=== PATIENT | female | born 1985 | race Caucasian/White ===

== ENCOUNTER 2019-01-19 10:21 | Outpatient (REF) | payer OTHER, SELFPAY ==
[2019-01-19 22:26] LABS: Anion Gap 6.5 mmol/L (3-11); BUN 12 mg/dL (7-18); CO2 30.5 mmol/L (21.0-32.0); CREATININE 0.83 mg/dL (0.55-1.02); Calcium 9.2 mg/dL (8.5-10.1); Chloride 102 mmol/L (98-107); Cholesterol 182 mg/dL (50-200); Glucose 84 mg/dL (70-100); HDL Cholesterol 71 mg/dL (40-60); LDL CHOLESTEROL 98 mg/dL (<100); Potassium 4.1 mmol/L (3.5-5.1); Sodium 139 mmol/L (136-145); Triglyceride 51 mg/dL (30-150)
== END 2019-01-19 10:41 ==
LOC: NCHCN 10:21
PROVIDERS: PCP Family Medicine; Visit Provider Family Medicine
DX: Z00.00 Encounter for general adult medical examination without abnormal findings (principal); Z13.220 Encounter for screening for lipoid disorders; Z13.228 Encounter for screening for other metabolic disorders
CPT/HCPCS: 80048; 80061; 83721

== ENCOUNTER 2019-03-17 15:03 | Outpatient (REF) | payer OTHER, SELFPAY ==
--- NOTE | 2019-03-17 14:30 | PAPFT_PTH ---
PATIENT: Maren Saucedo LOC: NCN #:[id number] AGE/SX: 33/F ROOM: RE03/17/[address]: Hiram Gasca : 1985 BED: DIS: 03/17/2019 SPEC #: [id number] RECD: 03/21/19 13:06 STATUS: AIMEE REElly #: [id number] HUGO: 03/17/19 14:[address]: Hiram Gasca DEPT: [facility] Cytology RECD BY: Cleo Waller Tissues: 1 - CX/ENDOCX FOR PAP SMEARS Procedures: PAP THIN PREP/UVM Screening HPV DNA PROBE Comments: [id number]
== END 2019-03-17 15:23 ==
LOC: NCHCN 15:03
PROVIDERS: PCP Family Medicine; Visit Provider Family Medicine
DX: Z00.00 Encounter for general adult medical examination without abnormal findings (principal); Z12.4 Encounter for screening for malignant neoplasm of cervix; Z11.51 Encounter for screening for human papillomavirus (HPV)
CPT/HCPCS: 88142; 87624

== ENCOUNTER 2020-04-25 18:37 | Outpatient (REF) | payer OTHER, SELFPAY ==
--- NOTE | 2020-04-25 15:30 | SKI_PTH ---
PATIENT: Maren Saucedo LOC: NCN U#:[id number] AGE/SX: 34/F ROOM: RE04/25/[address]: Yeimy Mejia : 1985 BED: DIS: 04/25/2020 SPEC #: [id number] RECD: 04/29/20 12:03 STATUS: AIMEE REElly #: [id number] HUGO: 04/25/20 15:[address]: Yeimy Mejia DEPT: Surgical Specimen RECD BY: Cleo Waller ENTERED: 04/29/20 12:03 SP TYPE: STANISLAV VEGA DR: Clem Rodgers Tissues: 1 - SKIN BIOPSY(SHAVE/PUNCH) Procedures: SKIN LEVEL 4 Comments: [id number]
== END 2020-04-25 18:57 ==
LOC: NCHCN 18:37
PROVIDERS: PCP Dentist General Practice; Visit Provider Nurse Practitioner Family
DX: L30.8 Other specified dermatitis (principal)
CPT/HCPCS: 88305

== ENCOUNTER 2021-08-27 09:13 | Emergency (ER) | payer OTHER, SELFPAY ==
--- NOTE | 2021-08-27 09:15 | RT.EKG_ITS ---
APPROVED REPORT Exam: Resting ECG Reason for Exam: chest pain Patient Location: E HR:81 bpm ECG Measurements Heart Rate 81 AXIS MD 148 P 78 QRSd 87 QRS 64 QT 381 T 15 QTc 442 Conclusion Sinus rhythm...normal P axis, V-rate 60- 99. Sinus. T wave inversion lead III. No STEMI. No old ekg to compare. I have reviewed and interpreted ECG and agree with software generated interpretation.
--- NOTE | 2021-08-27 09:15 | DI.RAD_ITS ---
Exam(s) XR PORTABLE CHEST AP EXAM: XR PORTABLE CHEST AP CLINICAL HISTORY: L chest pain, sob. TECHNIQUE: 2D digital imaging was performed. COMPARISON: No exams were available for comparison FINDINGS: Heart size is upper normal. The mediastinum is not widened. Chest leads in place Left lung is clear. There is a 2.8 by 2.0 cm nodular density in the right lung which is projected ov er the inferior pole of the right scapula. Recommend nonportable PA and lateral views which will abd uct the scapula and determine if this finding is in the lung or osseous within the scapula. There are no pleural effusions. IMPRESSION: Right lung finding as described above.Recommend nonportable PA and lateral views as the next step. DATA REPOSITORY: RADIATION DOSE DELIVERED: All CT scans at this facility use at least one of these dose optimization techniques: automated exposure control; mA and/or kV adjustment per patient size (includes targeted e xams where dose is matched to clinical indication); or iterative reconstruction.
[2021-08-27 09:20] VITALS: BP 99/81; PULSE 98; RESP 17; TEMP 36.6; O2SAT 100
[2021-08-27 09:37] LABS: Abs Immature Grans 0.01 10^3/uL (0.0-0.06); Absolute Basophil Count 0.04 10^3/uL (0.0-0.2); Absolute Eosinophil Count 0.06 10^3/uL (0.0-0.7); Absolute Lymphocyte Count 2.34 10^3/uL (1.2-3.4); Absolute Monocyte Count 0.75 10^3/uL (0.1-0.8); Basophils % 0.6; HCT 42.3 % (36.0-46.0); HGB 13.8 g/dL (11.2-15.7); Immature Grans % 0.2; Lymphocytes % 37.1; MCH 30.5 pg (27.0-33.0); MCHC 32.6 % (32.0-36.0); MCV 93.4 fL (80-95); MPV 9.7 fL (8.0-11.0); Monocytes % 11.9; Neutrophils % 49.2; Nucleated RBC 0 %; Platelet Count 270 10^3/uL (130-400); RBC 4.53 10^6/uL (3.93-5.22); RDW 12.2 % (11.7-14.6); RDW-SD 42.1 fL
[2021-08-27 09:44] VITALS: BP 124/74; PULSE 76; PULSE 85; RESP 15; O2SAT 100
[2021-08-27 09:45] VITALS: BP 130/78; PULSE 74; PULSE 75; RESP 19; O2SAT 100
[2021-08-27 09:46] VITALS: PULSE 81; RESP 17; O2SAT 100
[2021-08-27 09:47] VITALS: RESP 19
[2021-08-27 09:49] LABS: INR 1.1 (0.9-1.1); Prothrombin Time 10.8 sec (9.3-11.0)
[2021-08-27 09:50] LABS: Source Nasal/Nares
--- NOTE | 2021-08-27 09:50 | ED.GENADUL_ITS ---
Discharge Plan Disposition Patient Disposition: HOME Condition: Stable Discharge Details Clinical Impression: Chest pain, Shortness of breath Primary Care Provider: Hiram Gasca ED Provider: Jose Green Home Meds and New Rx's Prescriptions: Continued cetirizine 10 mg Tablet 10 mg PO DAILY RF: 0 Discharge Instructions Instructions: Chest Pain (ED), Dyspnea (ED) Additional Instructions: Work-up in the ER does not reveal any obvious emergent process. Your O2 levels are 100% on room air, no evidence of tachycardia or dysrhythmia. Your cardiac troponin and D-dimer are normal. I have set you up with a Holter monitor to wear for the next 48 hours. Please follow the instructions given to you by the respiratory therapy team. Please watch for new or worsening symptoms and return to the ER for any concerns. I would like you to contact your primary care provider later today or tomorrow to discuss your ER visit and ongoing symptoms, outpatient referral to cardiology and potential longer Holter monitor may be indicated for more definitive care of your symptoms. Medical Decision Making 36-year-old female reports constant left-sided chest aching over the past 2 weeks, feeling as though her heart is racing, documented her heart rate going into the 190s while running, concerned that her oxygen level was 90% today when checking her pulse ox at work. She states that her heart rate typically resting in the 60s and even at rest now it is in the 80s. Clinically she appears well, nontoxic. No evidence of tachycardia, tachypnea, hypoxemia. She is afebrile O2 sats are 100% on room air. Patient denies any early cardiac disease in her family, she does not smoke, no hormone therapy. She is fully vaccinated and Covid. Will obtain cardiac work-up although I do believe a single troponin and EKG is sufficient given the duration of her symptoms. Will also obtain a D- dimer, if positive will obtain CTA of the chest otherwise will obtain x-ray. Patient is not requiring any breathing treatment, symptoms oxygen, etc. Laboratories are unremarkable for obvious emergent process. No leukocytosis, D-dimer 161, mag 2.1, troponin less than 0.05. Covid negative. Chest x-ray read by radiology as 2.8 x 2.0 cm nodule density in the right lung which is projected over the inferior pole of the right scapula, recommending nonportable PA and lateral view. I did discuss this with the patient, she reports that she has had a previous tendon transfer to her scapula and this is likely the result. Discussed this with radiology, continue to recommend 2 view chest. Patient is agreeable to obtaining 2 view chest. Patient has remained asymptomatic while under my care here in the ER. Given her heart races into the 190s with exertion, plan is to set her up with a Holter monitor, 48-hour. Discussed that she may be going into an arrhythmia with exertion and may require outpatient Holter monitor longer than 48 hours if we do not capture her arrhythmia, and she may require outpatient cardiology referral. Strict discharge and return precautions provided. Patient has no additional questions or concerns and is comfortable with this plan. Repeat x-ray as below. Discussed these findings with patient. Patient will discuss with her primary care provider for monitoring, and indicated later will obtain CT. Patient is not a smoker and has never been a smoker. This documentation was generated using Headplayation system, please disregard any oddities of phrase or misspellings. Imaging Data Radiologic Study: Attestation: I personally reviewed and interpreted this imaging study as follows: Imaging: X-Ray Radiologist's impression: Exam(s) XR PORTABLE CHEST AP EXAM: XR PORTABLE CHEST AP CLINICAL HISTORY: L chest pain, sob. TECHNIQUE: 2D digital imaging was performed. COMPARISON: No exams were available for comparison FINDINGS: Heart size is upper normal. The mediastinum is not widened. Chest leads in place Left lung is clear. There is a 2.8 by 2.0 cm nodular density in the right lung which is projected over the inferior pole of the right scapula. Recommend nonportable PA and lateral views which will abduct the scapula and determine if this finding is in the lung or osseous within the scapula. There are no pleural effusions. IMPRESSION: Right lung finding as described above.Recommend nonportable PA and lateral views as the next step. Radiologic Study #2: Attestation: I personally reviewed and interpreted this imaging study as follows: Imaging: X-Ray Radiologist's impression: EXAM XR CHEST 2V PA LATERAL CLINICAL HISTORY [ ? of lesion on portable. ] [] TECHNIQUE 2D digital imaging was performed. COMPARISON [CR XR PORTABLE CHEST AP from 08/27/2021] [] FINDINGS [] [Heart size is normal. The mediastinum is not widened.] [Left lung remains clear.] [The nodular density in the right lung projects partially over the lung and partially over the inner medial aspect of the scapula. Cannot rule out the possibility of a lung nodule..] IMPRESSION [As above. If clinically indicated follow-up CT scan can be performed for added specificity Lab Data Lab results reviewed: Yes I reviewed the patient's lab results. Labs: Laboratory Tests Range/Units 08/27/21 08/27/21 08/27/21 09:25 09:25 09:25 WBC (4.4-10.8) 10^3/uL 6.30 RBC (3.93-5.22) 10^6/uL 4.53 Hgb (11.2-15.7) g/dL 13.8 Hct (36.0-46.0) % 42.3 MCV (80-95) fL 93.4 MCH (27.0-33.0) pg 30.5 MCHC (32.0-36.0) % 32.6 RDW (11.7-14.6) % 12.2 Plt Count (130-400) 10^3/uL 270 MPV (8.0-11.0) fL 9.7 Immature Gran % 0.2 Neutrophils % 49.2 Lymphocytes % 37.1 Monocytes % 11.9 Eosinophils % 1.0 Basophils % 0.6 Nucleated RBC % % 0 Absolute Neutrophils (1.2-6.7) 10^3/uL 3.10 Absolute Lymphocytes (1.2-3.4) 10^3/uL 2.34 Absolute Monocytes (0.1-0.8) 10^3/uL 0.75 Absolute Eosinophils (0.0-0.7) 10^3/uL 0.06 Absolute Basophils (0.0-0.2) 10^3/uL 0.04 PT (9.3-11.0) sec 10.8 INR (0.9-1.1) 1.1 APTT (21.0-27.5) sec 22.0 D-Dimer (<500) ng/mlFEU 161 Sodium (136-145) mmol/L 141 Potassium (3.5-5.1) mmol/L 3.4 L Chloride (98-107) mmol/L 103 Carbon Dioxide (21.0-32.0) mmol/L 26.6 Anion Gap (3-11) mmol/L 11.4 H BUN (7-18) mg/dL 13 Creatinine (0.55-1.02) mg/dL 1.1 H Estimated GFR/1.73 m2 (mL/min/1.73m2) 55.59 Glucose (74-106) mg/dL 103 Calcium (8.5-10.1) mg/dL 9.3 Magnesium (1.8-2.4) mg/dL 2.1 Total Bilirubin (0.2-1.0) mg/dL 0.5 AST (15-37) U/L 17 ALT (14-59) U/L 20 Alkaline Phosphatase (46-116) U/L 50 Troponin I (<0.06) ng/mL < 0.05 Total Protein (6.4-8.2) g/dL 8.2 Albumin (3.4-5.0) g/dL 4.5 TSH (0.36-3.74) uIU/mL COVID-19 Source SARS-CoV-2 (PCR) (Negative) Range/Units 08/27/21 08/27/21 09:25 09:45 WBC (4.4-10.8) 10^3/uL RBC (3.93-5.22) 10^6/uL Hgb (11.2-15.7) g/dL Hct (36.0-46.0) % MCV (80-95) fL MCH (27.0-33.0) pg MCHC (32.0-36.0) % RDW (11.7-14.6) % Plt Count (130-400) 10^3/uL MPV (8.0-11.0) fL Immature Gran % Neutrophils % Lymphocytes % Monocytes % Eosinophils % Basophils % Nucleated RBC % % Absolute Neutrophils (1.2-6.7) 10^3/uL Absolute Lymphocytes (1.2-3.4) 10^3/uL Absolute Monocytes (0.1-0.8) 10^3/uL Absolute Eosinophils (0.0-0.7) 10^3/uL Absolute Basophils (0.0-0.2) 10^3/uL PT (9.3-11.0) sec INR (0.9-1.1) APTT (21.0-27.5) sec D-Dimer (<500) ng/mlFEU Sodium (136-145) mmol/L Potassium (3.5-5.1) mmol/L Chloride (98-107) mmol/L Carbon Dioxide (21.0-32.0) mmol/L Anion Gap (3-11) mmol/L BUN (7-18) mg/dL Creatinine (0.55-1.02) mg/dL Estimated GFR/1.73 m2 (mL/min/1.73m2) Glucose (74-106) mg/dL Calcium (8.5-10.1) mg/dL Magnesium (1.8-2.4) mg/dL Total Bilirubin (0.2-1.0) mg/dL AST (15-37) U/L ALT (14-59) U/L Alkaline Phosphatase (46-116) U/L Troponin I (<0.06) ng/mL Total Protein (6.4-8.2) g/dL Albumin (3.4-5.0) g/dL TSH (0.36-3.74) uIU/mL 1.35 COVID-19 Source Nasal/Nares SARS-CoV-2 (PCR) (Negative) Negative ECG Data Attestation: I personally reviewed and interpreted this ECG (s) as follows: Interpretation: Please see official report by Dr. Bolanos. Sinus rhythm, ventri cular of 81. No STEMI. Nonspecific T wave abnormalities HPI General Mode of arrival: ambulatory . Date/Time Provider Initiated Documentation: 08/27/21 09:25 . Limitations to Documentation: no limitations . Information obtained by: patient . HPI Narrative: This is a 36-year-old female, denies any significant past medical history, is not a smoker, no hormone therapy, presenting to the ER for which she describes as fairly consistent left sided chest discomfort for the past 2 weeks, notices her heart races into the 190s when she runs causing shortness of breath, and then today at work checked her pulse oximetry and her O2 sat went as low as 90. Patient states that the pain in her left chest has been fairly constant but does change in intensity, currently is a just a dull ache but at times is more moderate. Patient has been fully vaccinated for Covid. She denies recent illness or trauma. She denies fever, cough, abdominal pain, nausea, vomiting, pain or swelling her legs. She has not taken any medications for her symptoms. Related Data Home Medications Medication Instructions Recorded Confirmed cetirizine 10 mg PO DAILY 08/27/21 08/27/21 Allergies Allergy/AdvReac Type Severity Reaction Status Date / Time No Known Allergies Allergy Verified 08/27/21 09:25 General Stated Complaint: Chest Pain ALEXIS: 2 Review of Systems Constitutional Constitutional: Denies fever(s) and Denies headache(s) ENT Ears, Nose, Mouth, and Throat: Denies headache(s) and Denies neck pain Cardiovascular Cardiovascular: Reports chest pain, Reports palpitations and Reports dyspnea Respiratory Respiratory: Denies cough and Reports dyspnea Gastrointestinal Gastrointestinal: Denies abdominal pain, Denies nausea and Denies vomiting Musculoskeletal Musculoskeletal: Denies back pain and Denies neck pain Integumentary/Breasts Skin/Breast: Denies rash Neurologic Neurologic: Denies headache(s) Endocrine Endocrine: Reports palpitations [facility] Social History Smoking/Tobacco Use Status: Never Smoking risk assessment performed?: Yes Alcohol Intake: current Alcohol Intake frequency: 0-2 drinks per day Alcohol type: beer and wine Drug use: Never Substance use type: does not use Do you feel safe at home: Yes Do you feel safe in your relationship?: Yes Exam Const General: cooperative, healthy appearing, comfortable and no acute distress Orientation: alert, awake and oriented x3 HENMT Head: normal to inspection, normocephalic and atraumatic Eyes General: appearance normal, both eyes and all related structures Conjunctivae: conjunctivae normal Neck Neck: normal visual inspection, full ROM, no meningeal signs, trachea midline and supple Chest Chest: normal inspection of the chest and normal palpation of entire chest wall Resp Effort & Inspection: normal respiratory effort and able to speak in complete sentences Auscultation: clear to auscultation bilaterally Cardio Rate: regular rate Rhythm: regular rhythm GI Palpation: soft, not firm, no guarding, no pulsatile masses and nontender Back/Spine/Pelvis Back: no CVA tenderness and No back tenderness Skin General skin exam: no rashes or lesions noted Neuro General: patient alert, patient awake, moves all extremities and no focal motor deficits Cognition: normal cognition Speech: speech normal Gait: normal gait Motor: muscle tone normal throughout Sensory Exam: no sensory deficits noted Extrem General: normal to inspection, full ROM, capillary refill normal, no pedal edema and no calf tenderness Psych Appearance: grossly normal Mental Status: mental status grossly normal Course Vital Signs Vital signs: Vital Signs Temperature 36.6 C 08/27/21 09:20 Pulse 98 H 08/27/21 09:20 Respiratory Rate 17 08/27/21 09:20 Blood Pressure 99/81 L 08/27/21 09:20 Pulse Oximetry 100 08/27/21 09:20 Temperature 36.6 C 08/27/21 09:20 Temperature Source Temporal Artery Scan 08/27/21 09:20 Pulse 98 H 08/27/21 09:20 Respiratory Rate 19 08/27/21 09:47 Respiratory Effort Non-Labored 08/27/21 09:47 Respiratory Depth Normal 08/27/21 09:47 Respiratory Pattern Normal 08/27/21 09:47 Blood Pressure 99/81 L 08/27/21 09:20 Blood Pressure Position Supine 08/27/21 09:20 Pulse Oximetry 100 08/27/21 09:20 Oxygen Delivery Method Room Air 08/27/21 09:20 Oxygen Flow Rate 0 08/27/21 09:20 Pain Level 2 08/27/21 09:47 Lab/Test Results Lab/Test Results: Laboratory Tests Range/Units 08/27/21 08/27/21 09:25 09:45 WBC (4.4-10.8) 10^3/uL 6.30 RBC (3.93-5.22) 10^6/uL 4.53 Hgb (11.2-15.7) g/dL 13.8 Hct (36.0-46.0) % 42.3 MCV (80-95) fL 93.4 MCH (27.0-33.0) pg 30.5 MCHC (32.0-36.0) % 32.6 RDW (11.7-14.6) % 12.2 Plt Count (130-400) 10^3/uL 270 MPV (8.0-11.0) fL 9.7 Immature Gran % 0.2 Neutrophils % 49.2 Lymphocytes % 37.1 Monocytes % 11.9 Eosinophils % 1.0 Basophils % 0.6 Nucleated RBC % % 0 Absolute Neutrophils (1.2-6.7) 10^3/uL 3.10 Absolute Lymphocytes (1.2-3.4) 10^3/uL 2.34 Absolute Monocytes (0.1-0.8) 10^3/uL 0.75 Absolute Eosinophils (0.0-0.7) 10^3/uL 0.06 Absolute Basophils (0.0-0.2) 10^3/uL 0.04 COVID-19 Source Nasal/Nares PAWSS Have you Been Recently Intoxicated or Drunk Within the Last 30 days?: No Have you Ever Experienced Previous Episodes of Alcohol Withdrawal?: No Have you ever Experienced Withdrawal Seizures?: No Have you ever Experienced Delirium Tremens(DT)s?: No Have you ever undergone Alcohol Rehabilitation Treatment (i.e, inpt ot outpatient treatment programs)?: No Have you ever Experienced Blackouts?: No Have you ever Combined Alcohol with other Downers within the last 90 days?: No Have you ever Combined Alcohol with any other Substance of Abuse during the last 90 days?: No Positive Blood Alcohol level on Presentation? [PCS.BAL]: No Evidence of Increased Autonomic Activity (i.e. HR>120, tremor, sweating, agitation, nausea)?: No Result: 0
[2021-08-27 10:05] LABS: D-Dimer 161 ng/mlFEU (<500)
[2021-08-27 10:07] LABS: ALT 20 U/L (14-59); AST 17 U/L (15-37); Albumin 4.5 g/dL (3.4-5.0); Alkaline Phosphatase 50 U/L (46-116); Anion Gap 11.4 mmol/L (3-11); BUN 13 mg/dL (7-18); Bilirubin, Total 0.5 mg/dL (0.2-1.0); CO2 26.6 mmol/L (21.0-32.0); CREATININE 1.1 mg/dL (0.55-1.02); Calcium 9.3 mg/dL (8.5-10.1); Chloride 103 mmol/L (98-107); Estimated GFR 55.59 (mL/min/1.73m2); Glucose 103 mg/dL (74-106); Magnesium 2.1 mg/dL (1.8-2.4); Potassium 3.4 mmol/L (3.5-5.1); Sodium 141 mmol/L (136-145); Total Protein 8.2 g/dL (6.4-8.2)
[2021-08-27 10:12] LABS: Troponin I < 0.05 ng/mL (<0.06)
[2021-08-27 10:34] LABS: TSH (W/Ref FT4) 1.35 uIU/mL (0.36-3.74)
[2021-08-27 10:42] LABS: COVID-19 PCR Negative (Negative)
--- NOTE | 2021-08-27 11:00 | DI.RAD_ITS ---
Exam(s) XR CHEST 2V PA LATERAL EXAM: XR CHEST 2V PA LATERAL CLINICAL HISTORY: ? of lesion on portable. TECHNIQUE: 2D digital imaging was performed. COMPARISON: CR XR PORTABLE CHEST AP from 08/27/2021 FINDINGS: Heart size is normal. The mediastinum is not widened. Left lung remains clear. The nodular density in the right lung projects partially over the lung and partially over the inner m edial aspect of the scapula. Cannot rule out the possibility of a lung nodule.. IMPRESSION: As above. If clinically indicated follow-up CT scan can be performed for added specificity. DATA REPOSITORY: RADIATION DOSE DELIVERED:
[2021-08-27 12:01] VITALS: BP 130/78; PULSE 74; RESP 19; TEMP 36.6; O2SAT 100
== END 2021-08-27 12:01 | disposition home or self-care (01) ==
PROVIDERS: Emergency Provider Physician Assistant; PCP Family Medicine
DX: R07.9 Chest pain, unspecified (principal); R06.02 Shortness of breath; Z20.822 Contact with and (suspected) exposure to COVID-19
CPT/HCPCS: 36415; 80053; 87635; 93005; 99284; 71045; 71046; 83735; 84443; 84484; 85025; 85379; 85610; 85730; 93010; 93225

== ENCOUNTER 2021-08-27 10:00 | Outpatient (RCR) | payer OTHER, SELFPAY ==
--- NOTE | 2021-08-27 10:00 | HOLTER_ITS ---
APPROVED REPORT Conclusion This is a 48-hour Holter monitor, reportedly ordered for chest pain, tachycardia and dyspnea Rhythm throughout was sinus. Average heart rate was 73. Minimum was 53, maximum 171 There were no ventricular dysrhythmias There was an isolated atrial premature beat There was no atrial fibrillation, no high-grade AV block, no pauses greater than 3 seconds Patient reported symptoms did not correlate to any dysrhythmia
== END 2021-09-23 23:59 | disposition home or self-care (01) ==
LOC: RT 10:00
PROVIDERS: Visit Provider Physician Assistant
DX: R07.9 Chest pain, unspecified (principal); R00.0 Tachycardia, unspecified; R06.09 Other forms of dyspnea; I49.1 Atrial premature depolarization
CPT/HCPCS: 93225; 93226

== ENCOUNTER 2021-12-05 08:52 | Day surgery (SDC) | payer OTHER, SELFPAY ==
--- NOTE | 2021-12-04 11:57 | W.PM.ENDDOP ---
Endoscopy Report DATE OF PROCEDURE: 12/05/21 PRE-OP DIAGNOSIS: medication refractory GERD SURGEON: Krsita Rodrigues ANESTHESIA TYPE: General:No Airway PATHOLOGY: other COMPLICATIONS: None DISPOSITION: same day PROCEDURE DESCRIPTION: After informed consent was obtained the patient was take to the procedure room and placed in a supine position. Monitors were applied and a time out was done. The patients name, date of , procedure type, allergies to medications and metal in their body was reviewed. A bite block was placed and the patient was sedated. Once sedated and comfortable the gastroscope was advanced through the oropharynx which was grossly normal into the esophagus. The proximal and mid-esophagus are normal there are no esophageal erosions, varices, diverticula or stricture apparent. There is some mild esophagitis at the GE junction. scope was advanced into the stomach and through the pylorus into the 3rd portion of the duodenum. The duodenum was noted to be nl Biopsies were done all specimen is retrieved and no bleeding is noted.. The scope was retracted back into the stomach and biopsies were done to rule out H. pylori. There were no ulcers. There is some mild erythema radiating out from the antrum in a striped fashion. Biopsies were taken. Thd Scope was retroflexed. The cardia and fundus were noted to be normal. There was no hiatal hernia noted. The scope was retracted back into the esophagus and biopsies were done of the GE junction to rule out Garcia's. The Z line was irregular. LA class 1. The GE junction was at 38 cm. Biopsies were taken at 38 cm. Also at 36 cm in the distal esophagus. The scope was removed and the patient was woken up and taken back to [facility] in stable condition.
--- NOTE | 2021-12-04 11:57 | W.PM.DSUDISC ---
Discharge Plan Disposition Patient Disposition: HOME Condition: Good Discharge Details Reason For Visit: EGD/Stomach scope Attending Provider: Krista Rodrigues Primary Care Provider: Hiram Gasca Home Meds and New Rx's Prescriptions: New pantoprazole [Protonix] 40 mg tablet,delayed release (DR/EC) 40 mg PO DAILY Qty: 90 4RF Discontinued omeprazole 20 mg capsule,delayed release(DR/EC) 20 mg PO BID Qty: 60 0RF No Action cetirizine 10 mg Tablet 10 mg PO DAILY 0RF Discharge Instructions Additional Instructions: Post EGD Instruction ? ?You had anesthesia for your EGD/stomach scope today.? For your safety, please do the following for the next twenty-four (24) hours: Do Not operate a motor vehicle (car, truck, motorcycle, etc.) Do Not drink alcoholic beverages or use any recreational drugs for the first 24 hours or while taking pain medications. The medications in your body may have a reaction that can be dangerous. Do Not make any important decisions or sign any important papers ? You have just had a gastroscopy (EGD) or upper GI tract examination. It is important for your smooth recovery that you carefully follow the recommendations below. Do not hesitate to call if any questions should arise about your anesthesia, condition, or care. -Symptoms you may experience during the next 24 hours: ?1. Mild abdominal pain or excessive gas or a bloated feeling which improves with rest, liquids, eating?? slightly, and walking as tolerated. 2. Drowsiness and/or forgetfulness because of the medications you were given. ?3. Throat numbness for about 1 hour. 4. A sore throat which you can treat with throat lozenges or by gargling with salt water 4-5 times a day. 5. Redness at the site of your IV which you can treat with warm compresses. ? SPECIAL INSTRUCTIONS: 1. You may resume your previous diet in one hour. We recommend a light meal to start, then progress as tolerated. 2. Restart regular medications in one hour. 3. No aspirin or non-steroidal containing medication for three days. 4. No lifting over 20 pounds or strenuous activity for the first 24 hours after your procedure. After 24 hours there are no restrictions on your activity, but you may feel fatigued for a few days. ? ?Findings:mild esophagitis/gastritis -Medications:protonic -Continue to follow lifestyle modifications: No alcohol, tobacco products, Aspirin or NSAID's (ibuprofen, Motrin, Naprosyn, aleve, etc).? Try to limit/avoid:? soda pop/any carbonated beverages, caffeine (including tea & chocolate), and acidic foods, (tomatoes, citrus, onions, peppermints) spicy or fried/fatty foods. Do not lie down for 30 minutes after eating, and do not eat 2 hours prior to bedtime. Avoid wearing tight fitting clothing/ belts. Follow up: -My office will send a letter with the results of your biopsy?s in 2-3wks time. -change medication to protonix daily. See you you feel after 2-3wks. If symptoms are not improved, follow- up in office. ? Call the office at [phone] (Office) or [phone] (Hospital), or go to the ER right away if you notice any of the followin. Vomiting blood and /or ?coffee ground? material. ?2. Worsening of abdominal pain or cramping. ?3. Trouble with breathing, cough, and/or fever (temperature above 101.5 F). 4. Increasing pain with swallowing. ?5. Chest pain. 6. Any new symptoms. 7. Worsening of the redness at the IV site ? Activity:: see above Diet:: see above Discharge Orders Discharge Orders: Discharge Order (Routine); Ordered 12/04/21 Ordered By: Krista Rodrigues DS: Diagnosis Discharge Diagnosis (1) GERD (gastroesophageal reflux disease): Status: Chronic (2) Esophagitis: Status: Acute (3) Chronic gastritis: Status: Acute
[2021-12-05 09:12] VITALS: BP 113/80; PULSE 71; RESP 16; TEMP 36.6; O2SAT 100
[2021-12-05] MEDS: Lactated Ringers 1,000 ML 80 ML IV (09:27)
--- NOTE | 2021-12-05 09:56 | W.ANESPRE ---
General Info Date of Service Date Performed: 12/05/21 Height: 5 ft 3.5 in Weight: 69.5 kg Body Mass Index (BMI): 26.6 Surgical Procedure: Operation Date: 12/05/21 10:05 Proposed Procedure Side Surgeon p Gastroscopy Krista Rodrigues, DO Meds Allergies and Home Medications Allergies Allergy/AdvReac Type Severity Reaction Status Date / Time No Known Allergies Allergy Verified 12/04/21 12:40 Home Medication Medication Instructions Recorded cetirizine 10 mg tablet 10 mg PO DAILY 08/27/21 omeprazole 20 mg capsule,delayed 20 mg PO BID #60 cap 11/21/21 release Current Visit Medications: Current Medications Generic Name Dose Route Start Last Admin Trade Name Freq PRN Reason Stop Dose Admin Hyoscyamine Sulfate 0.125 mg 12/05/21 06:00 Hyoscyamine 0.125 Mg Sl/Oral/Chew SL 12/05/21 16:00 DIRECTED PRN Ringer's Solution 1,000 mls @ 80 mls/hr 12/05/21 06:00 12/05/21 09:27 IV 01/03/22 23:59 80 mls/hr INFUSION ABIEL Administration IV Miscellaneous Supplies 1 each 12/05/21 06:00 Iv Access IV 01/03/22 23:59 DIRECTED ABIEL Ondansetron HCl 4 mg 12/05/21 06:00 Ondansetron 4 Mg/2 Ml Vial IVP 12/05/21 16:00 Q4H PRN PRN Nausea / Vomiting Sodium Chloride 0 ml 12/05/21 06:00 Normal Saline Flush 10 Ml Syr IV 01/03/22 23:59 PRN PRN Sodium Chloride 0 ml 12/05/21 06:00 Normal Saline 10 Ml Vial IJ 01/03/22 23:59 DIRECTED PRN Sterile Water 0 ml 12/05/21 06:00 Water,Injection,Sterile 10 Ml Vial IJ 01/03/22 23:59 DIRECTED PRN PFSH Active Problems Active Problems: Problem Status Onset Code Chest pain R07.9 Shortness of breath R06.02 GERD (gastroesophageal reflux disease) K21.9 Skin mole D22.9 Abnormal chest xray R93.89 Lichen planus L43.9 Family history of breast cancer in first degree relative Z80.3 Medical History Medical History Comments:: had one beer last night. Surgical History Surgical History (Updated 12/05/21 @ 09:24 by Nitza Mejia RN) Hx of shoulder surgery Right shoulder x2 Tobacco Smoking/Tobacco Use Status: Never Alcohol Alcohol Intake: current Alcohol intake frequency: 0-2 drinks per day Alcohol type: beer and wine Substance Use Substance use: Never Substance use type: does not use Vital Signs and Lab Results Vital Signs Most Recent Vital Signs in EMR: Most Recent Vital Signs Temp Pulse Resp BP Pulse Ox 36.6 C 71 16 113/80 100 12/05/21 09:12 12/05/21 09:12 12/05/21 09:12 12/05/21 09:12 12/05/21 09:12 Point of Care Results Point of Care Results: POC- Test(urine) Negative 12/05/21 09:26 Lab Results Blood Type / Crossmatch: No Data to Display Complete Blood Count: No Data to Display Complete Metabolic Panel: No Data to Display Liver Function Panel: No Data to Display Coagulation Panel: No Data to Display Cardiac Panel: No Data to Display Arterial Blood Gas: No Data to Display Venous Blood Gas: No Data to Display Pancreas Panel: No Data to Display Thyroid Panel: No Data to Display Infectious Disease: Coronavirus (COVID-19)(PCR) Negative (Negative) 12/03/21 06:30 12/03/21 Coronavirus 2019 Source Nasal/Nares 12/03/21 06:30 12/03/21 Blood Cultures: No Data to Display Toxicology Panel: No Data to Display Panel: No Data to Display Imaging and Studies Imaging and Studies Study information below may be from another EMR and interpreted by another provider. Please see original notes in EMR for more complete details. EKG Summary: 08/2021: Exam: Resting ECG Reason for Exam: chest pain Patient Location: E HR:81 bpm ECG Measurements Heart Rate 81 AXIS SC 148 P 78 QRSd 87 QRS 64 QT 381 T15 QTc 442 Conclusion Sinus rhythm...normal P axis, V-rate 60- 99. Sinus. T wave inversion lead III. No STEMI. No old ekg to compare. I have reviewed and interpreted ECG and agree with software generated interpretation. Anesthesia Assessment and Plan Anesthesia History Personal History: PONV Family History: No Family History of Anesthesia Complications Exercise Tolerance Exercise Tolerance: Metabolic Equivalents>4 Pertinent Negatives Pertinent Negatives: No Major Cardiovascular Symptoms or Complaints and No Major Pulmonary Symptoms or Complaints Cardiac & Pulmonary Exam Cardiac Exam: Normal S1/S2 Heart Sounds Pulmonary Exam: Clear Bilateral Breath Sounds Implantable Cardiac Device Does patient have a Pacemaker or an ICD?: No Airway Exam Known Difficult Airway: No Mallampati Class: 1 Mouth Opening: Normal (> 3cm) Thyromental Distance: Greater than 3 cm Neck Range of Motion: Full ROM Neck Circumference: Normal Teeth Condition: Normal Dentition ASA Classification ASA Score: ASA 2 Emergency Case?: No NPO Status NPO Status: NPO Clears >2 hours, Solids >8 hours Status Status: Negative HCG Anesthesia Plan Resuscitation Status: Full Code Anesthesia Technique: General Anesthesia Airway Planned: Natural Airway Monitors Used: Standard Monitors
[2021-12-05 09:59] VITALS: BMI 26.6
--- NOTE | 2021-12-05 10:43 | STOM_PTH ---
PATIENT: Maren Saucedo LOC: [facility] U#:[id number] AGE/SX: 36/F ROOM: RE12/05/[address]: Krista Rodrigues : 1985 BED: DIS: 12/05/2021 SPEC #: [id number] RECD: 12/05/21 12:57 STATUS: AIMEE RE #: [id number] HUGO: 12/05/21 10:[address]: Krista Rodrigues DEPT: Surgical Specimen RECD BY: Cleo Waller ENTERED: 12/05/21 12:59 SP TYPE: STOMACH OTHR DR: Hiram Gasca Tissues: 1 - BIOPSY BOWEL 2 - BIOPSY BOWEL 3 - STOMACH BIOPSY 4 - STOMACH BIOPSY 5 - ESOPHAGUS BIOPSY 6 - ESOPHAGUS BIOPSY 7 - ESOPHAGUS BIOPSY Procedures: GROSS AND MICRO LEVEL 4 Comments: [id number]
[2021-12-05 10:55] VITALS: BP 101/74; PULSE 76; RESP 16; TEMP 36.4; O2SAT 100
--- NOTE | 2021-12-05 11:11 | W.ANESPOSTOP ---
Postoperative Evaluation Date, Time and Location Date Performed: 12/05/21 Time Performed: 11:11 Patient Location: Day [facility] Unit Vital Signs Most Recent Imported Vital Signs: Most Recent Vital Signs Temp Pulse Resp BP Pulse Ox 36.4 C L 76 16 101/74 100 12/05/21 10:55 12/05/21 10:55 12/05/21 10:55 12/05/21 10:55 12/05/21 10:55 Pain Score Most Recent Pain Score: Most Recent Pain Score Pain Level 0 12/05/21 10:55 Assessment Mental Status: Awake (Alert & Oriented to Patient Baseline) Airway and Respiratory Function: Patent airway with normal (patient baseline) respiratory exam Cardiovascular Function: Hemodynamically Stable Hydration Status: Adequately Hydrated Nausea & Vomiting: No Nausea or Vomiting Pain: Pt. Denies Any Pain Peripheral Nerve Block: Patient did not receive a nerve block
[2021-12-05 11:25] VITALS: BP 104/77; PULSE 70; RESP 16; TEMP 36.9; O2SAT 100
== END 2021-12-05 11:52 | disposition home or self-care (01) ==
LOC: SUR 08:53
PROVIDERS: PCP Family Medicine; Visit Provider Surgery
PROC: 0DJ68ZZ Inspection of Stomach, Via Natural or Artificial Opening Endoscopic (ICD-10-PCS; CPT 43235; principal; 2021-12-05 10:00)
DX: K21.9 Gastro-esophageal reflux disease without esophagitis (principal); K31.89 Other diseases of stomach and duodenum
CPT/HCPCS: 43239; 81025; 88305; J2001

== ENCOUNTER 2022-01-16 02:08 | Outpatient (CLI) | payer OTHER, SELFPAY ==
--- NOTE | 2022-01-16 | DI.RAD_ITS ---
Exam(s) XR CHEST 2V PA LATERAL EXAM: XR CHEST 2V PA LATERAL CLINICAL HISTORY: F/U 08/27/21, ? NODULE TECHNIQUE: 2D digital imaging was performed of the chest. Two images were obtained. PA and lateral views were obtained. COMPARISON: CR XR PORTABLE CHEST AP from 08/27/2021 CR XR CHEST 2V PA LATERAL from 08/27/2021 FINDINGS: MEDIASTINUM: Normal. HEART: Normal. PULMONARY VASCULATURE: Normal. LUNGS: Clear. No pulmonary nodule is identified. PLEURAL SPACE: No pleural effusion or pneumothorax. BONE:Within normal limits for the patient's age. The area of concern along the right lateral chest w all appears to a be osseous in origin and represent the inferior right scapula. OTHER FINDINGS:Normal. IMPRESSION: 1. No acute pulmonary findings. 2. The area of concern on the x-rays from 08/27/2021 appear to be scapular related. An x-ray of the r ight scapular/shoulder may be obtained for further evaluation. DATA REPOSITORY: RADIATION DOSE DELIVERED:
--- NOTE | 2022-01-16 07:30 | DI.MAMMO_ITS ---
Exam(s) MAMMO SCREENING EXAM: MAMMO SCREENING CLINICAL HISTORY: SCREENING, Z12.39; FAMILY H/O BREAST CA, Z80.3 TECHNIQUE: Bilateral full field digital CC and MLO mammographic images were obtained with 3D tomosyn thesis and utilizing computer aided detection (CAD). COMPARISON: None. FINDINGS: Masses/Architectural Distortion: None seen. Microcalcifications: No suspicious pleomorphic-type are seen. Skin Thickening/Nipple Retraction: None. IMPRESSION: 1. No significant interval change with no specific features of malignancy noted. 2. Unless there is more urgent need, screening mammography is recommended, as per [employer] guidelines. BI-RADS Category 1 - Negative Breast Density - Category C - Heterogeneously dense Breast density category C or D implies that the patient has dense breast tissue. Dense breast tissue is very common and is not abnormal but dense breast tissue can make it harder to find cancer on a ma mmogram. Also, dense breast tissue may increase their breast cancer risk. This information about the result of the mammogram report was provided to the patient to raise their awareness. Use this report when you speak with the patient about their risks for breast cancer, which includes their family hist ory. At that time, you may recommend for more screening tests (Ultrasound or MRI) as they might be us eful based on their risk. A negative radiographic report should not delay biopsy if a dominant or clinically suspicious mass is present. Up to ten percent of cancers are not identified on mammography. A negative report may reinforce clinical impression. Adenosis and dense breasts may obscure an underlying neoplasm. False positive reports average 6 to 10%. Patient will receive a letter notifying them of these results.
== END 2022-01-16 02:28 ==
PROVIDERS: PCP Family Medicine; Visit Provider Family Medicine
DX: Z12.31 Encounter for screening mammogram for malignant neoplasm of breast (principal); Z80.3 Family history of malignant neoplasm of breast; R91.8 Other nonspecific abnormal finding of lung field; R92.8 Other abnormal and inconclusive findings on diagnostic imaging of breast
CPT/HCPCS: 77063; 77067; 71046

== ENCOUNTER → 2024-04-07 01:16 | Outpatient (CLI) | payer OTHER, SELFPAY ==
--- NOTE | 2024-04-07 | DI.MAMMO_ITS ---
Exam(s) MAMMO SCREENING EXAM: MAMMO SCREENING CLINICAL HISTORY: SCREENING, Z12.31. TECHNIQUE: Bilateral full field digital CC and MLO mammographic images were obtained with 3D tomosyn thesis and utilizing computer aided detection (CAD). COMPARISON: Prior mammograms were reviewed. FINDINGS: The fibroglandular tissue pattern is again noted be moderately dense, this somewhat decreasing the se nsitivity of the mammogram for finding hidden underlying lesions. There are no obvious new spiculated masses nor malignant appearing microcalcification groups. There is no significant architectural distortion nor skin thickening-retraction. IMPRESSION: Dense bilateral fibroglandular tissue. No obvious radiographic evidence of malignancy nor significan t change compared to prior mammogram of December 2021. BI-RADS Category 1 - Negative Breast Density - Category C - Heterogeneously dense Breast density Category C or D implies that the patient has dense breast tissue. Dense breast tissue can make it harder to find cancer on a mammogram. Dense breast tissue is also associated with an incr eased risk of breast cancer. This information about the result of the mammogram report was provided to the patient to raise their awareness. Use this report when you speak with the patient about their risks for breast cancer, which includes their family history. At that time, you may recommend additional screening tests (Ultrasoun d or MRI) as these tests may add significant information. A negative radiographic report should not delay biopsy if a dominant or clinically suspicious mass is present. Up to ten percent of cancers are not identified on mammography. A negative report may reinforce clinical impression. Adenosis and dense breasts may obscure an underlying neoplasm. False positive reports average 6 to 10%. Patient will receive a letter notifying them of these results.
== END ==
PROVIDERS: PCP Family Medicine; Visit Provider Family Medicine
DX: Z12.31 Encounter for screening mammogram for malignant neoplasm of breast (principal); R92.331 Mammographic heterogeneous density, right breast
CPT/HCPCS: 77063; 77067

== ENCOUNTER 2024-08-25 12:14 | Outpatient (REF) | payer OTHER, SELFPAY ==
--- NOTE | 2024-08-25 11:45 | PAPFT_PTH ---
PATIENT: Maren Saucedo LOC: [facility] U#:[id number] AGE/SX: 39/F ROOM: RE08/25/[address]: Christie White DO : 1985 BED: DIS: 08/25/2024 SPEC #: [id number] RECD: 08/25/24 15:43 STATUS: AIMEE REQ #: [id number] HUGO: 08/25/24 11:[address]: Christie White DEPT: [facility] Cytology RECD BY: Cleo Waller ENTERED: 08/25/24 15:44 SP TYPE: PAPFT OTHR DR: Hiram Gasca Tissues: 1 - CX/ENDOCX FOR PAP SMEARS Procedures: PAP THIN PREP/UVM Screening HPV DNA PROBE Comments: [id number] (HPV 16 & 18/45)
== END 2024-08-25 12:15 | disposition home or self-care (01) ==
LOC: LBN 12:14
PROVIDERS: PCP Family Medicine; Visit Provider Obstetrics & Gynecology
DX: Z01.419 Encounter for gynecological examination (general) (routine) without abnormal findings (principal); Z80.3 Family history of malignant neoplasm of breast
CPT/HCPCS: 88142; 87624

== ENCOUNTER 2025-06-29 13:38 | Outpatient (REF) | payer OTHER, SELFPAY ==
[2025-06-29 14:56] LABS: HCT 39.0 % (36.0-46.0); HGB 12.8 g/dL (11.2-15.7); MCH 30.8 pg (27.0-33.0); MCHC 32.8 % (32.0-36.0); MCV 94 fL (80-95); MPV 10.3 fL (8.0-11.0); Platelet Count 306 10^3/uL (130-400); RBC 4.15 10^6/uL (3.93-5.22); RDW 12.1 % (11.7-14.6); RDW-SD 42.3 fL; WBC 5.71 10^3/uL (4.4-10.8)
[2025-06-29 15:04] LABS: Iron 103 ug/dL (50-170); Total Iron Binding Capacity 327 ug/dL (250-450); Transferrin Sat 31 % (15-50)
[2025-06-29 15:18] LABS: ALT 20 U/L (14-59); AST 20 U/L (15-37); Albumin 4.1 g/dL (3.4-5.0); Alkaline Phosphatase 55 U/L (46-116); Anion Gap 9.4 mmol/L (3-11); BUN 10 mg/dL (7-18); Bilirubin, Total 0.4 mg/dL (0.2-1.0); CO2 26.6 mmol/L (21.0-32.0); Calcium 9.5 mg/dL (8.5-10.1); Calculated LDL 112 mg/dL (<100); Chloride 102 mmol/L (98-107); Cholesterol 196 mg/dL (<200); Estimated GFR 94.87 (mL/min/1.73m2); Ferritin 37 ng/mL (8-252); Glucose 90 mg/dL (74-106); HDL Cholesterol 74 mg/dL (>or=50); Potassium 5.0 mmol/L (3.5-5.1); Sodium 138 mmol/L (136-145); Total Protein 7.0 g/dL (6.4-8.2); Triglyceride 51 mg/dL (<150)
== END 2025-06-29 13:39 | disposition home or self-care (01) ==
LOC: NCHCN 13:38
PROVIDERS: PCP Family Medicine; Visit Provider Family Medicine
DX: Z83.49 Family history of other endocrine, nutritional and metabolic diseases (principal); Z00.00 Encounter for general adult medical examination without abnormal findings
CPT/HCPCS: 80053; 80061; 85027; 82728; 83540; 83550

== ENCOUNTER → 2025-09-25 00:33 | Outpatient (CLI) | payer OTHER, SELFPAY ==
--- NOTE | 2025-09-25 07:45 | DI.MAMMO_ITS ---
Exam(s) MAMMO SCREENING EXAM: MAMMO SCREENING CLINICAL HISTORY: screening,z12.39 TECHNIQUE: Bilateral full field digital CC and MLO mammographic images were obtained with 3D tomosynthesis and utilizing computer aided detection (CAD). COMPARISON: Comparison is made with prior examinations. FINDINGS: Masses/Architectural Distortion: No suspicious masses or areas of architectural distortion are present. Microcalcifications: No suspicious pleomorphic-type are seen. Skin Thickening/Nipple Retraction: None. IMPRESSION: 1. No significant interval change with no specific features of malignancy noted. 2. Unless there is more urgent need, screening mammography is recommended, as per [employer] guidelines. BI-RADS Category 1 - Negative Breast Density - Category C - The breast are heterogeneously dense, which may obscure small masses. Breast density Category C or D implies that the patient has dense breast tissue. Dense breast tissue can make it harder to find cancer on a mammogram. Dense breast tissue is also associated with an increased risk of breast cancer. This information about the result of the mammogram report was provided to the patient to raise their awareness. Use this report when you speak with the patient about their risks for breast cancer, which includes their family history. At that time, you may recommend additional screening tests (Ultrasound or MRI) as these tests may add significant information. A negative radiographic report should not delay biopsy if a dominant or clinically suspicious mass is present. Up to ten percent of cancers are not identified on mammography. A negative report may reinforce clinical impression. Adenosis and dense breasts may obscure an underlying neoplasm. False positive reports average 6 to 10%. Patient will receive a letter notifying them of these results.
== END ==
LOC: DI 00:33
PROVIDERS: PCP Family Medicine; Visit Provider Obstetrics & Gynecology
DX: Z12.31 Encounter for screening mammogram for malignant neoplasm of breast (principal)
CPT/HCPCS: 77063; 77067